=== PATIENT | male | born 1990 | race African-American/Black ===

== ENCOUNTER 2016-06-14 15:46 | Inpatient (IN) | payer OTHER ==
[2016-06-14 16:52] VITALS: BMI 22.7
[2016-06-14] MEDS ORDERED: P-EPHED 60MG/TRIPROLIDI 2.5MG TABLET PO PRN (17:00)
[2016-06-14] MEDS ORDERED: MAGNESIUM CITRATE 300 ML BOTTLE PO PRN (17:00)
[2016-06-14] MEDS ORDERED: MAGNESIUM HYDROX 2400MG/30ML ORAL SUSPENSION 30 ML CUP PO PRN (17:00)
[2016-06-14] MEDS ORDERED: IBUPROFEN 400 MG TABLET (FP) PO PRN (17:00)
[2016-06-14] MEDS ORDERED: MENTHOL/PHENOL 1 EACH UD MM PRN (17:00)
[2016-06-14] MEDS ORDERED: guaiFENesin/D-METHORPHAN HB 10 ML UNIT-DOSE CUPS PO PRN (17:00)
[2016-06-14] MEDS ORDERED: MAG HYDROX/AL HYDROX/SIMETH 30 ML UNIT-DOSE CUP PO PRN (17:00)
[2016-06-14] MEDS ORDERED: LOPERAMIDE HCL 2 MG CAPSULE PO PRN (17:00)
[2016-06-14] MEDS ORDERED: ACETAMINOPHEN 325 MG TABLET (FP) PO PRN (17:00)
[2016-06-14] MEDS ORDERED: hydrOXYzine PAMOATE 50 MG CAPSULE (FP) PO PRN (17:00)
--- NOTE | 2016-06-14 17:00 | HP ---
Admission ROS [facility] - [facility] Chief Complaint: i want to go to rehab Allergies/Adverse Reactions: Allergies Allergy/AdvReac Type Severity Reaction Status Date / Time house dust mite AdvReac Verified 06/14/16 16:56 pollen extracts AdvReac Verified 06/14/16 16:56 History of Present Illness: 25 years old male with long history of pcp, cocaine, marijuana, dependence, came to [facility] first time seeking rehab program, is admitted to rehab Exam Limitations: No Limitations - Ebola screening Have you traveled outside of the country in the last 21 days: No Have you had contact with anyone from an Ebola affected area: No Have you been sick,other than usual withdrawal symptoms: No Do you have a fever: No - Review of Systems Constitutional: Loss of Appetite, Unintentional Wgt. Loss EENT: reports: Hearing Loss (x 1 year) Respiratory: reports: Cough, SOB with Exertion Cardiac: reports: Palpitations GI: reports: Poor Appetite, Poor Fluid Intake : reports: No Symptoms Reported Musculoskeletal: reports: Back Pain Integumentary: reports: Change in Color (left knee - fell - "few days ago") Neuro: reports: No Symptoms reported Endocrine: reports: No Symptoms Reported Hematology: reports: No Symptoms Reported Psychiatric: reports: Judgement Intact, Orientated x3, Depressed Other Systems: Reviewed and Negative Patient History - Patient Medical History Hx Anemia: No Hx Asthma: Yes Hx Chronic Obstructive Pulmonary Disease (COPD): No Hx Cancer: No Hx Cardiac Disorders: No Hx Congestive Heart Failure: No Hx Hypertension: No Hx Hypercholesterolemia: No Hx Pacemaker: No HX Cerebrovascular Accident: No Hx Seizures: No Hx Dementia: No Hx Diabetes: No Hx Gastrointestinal Disorders: No Hx Liver Disease: No Hx Genitourinary Disorders: No Hx Sexually Transmitted Disorders: No Hx Renal Disease (ESRD): No Hx Thyroid Disease: No Hx Human Immunodeficiency Virus (HIV): No Hx Hepatitis C: No Hx Depression: Yes Hx Suicide Attempt: No Hx Bipolar Disorder: No Hx Schizophrenia: Yes - Patient Surgical History Past Surgical History: No - PPD History Previous Implant?: Yes Documented Results: Negative w/o proof Implanted On Prior R Admission?: No PPD to be Administered?: Yes - Smoking Cessation Smoking history: Current every day smoker Have you smoked in the past 12 months: Yes Aproximately how many cigarettes per day: 7 Cigars Per Day: 0 Hx Chewing Tobacco Use: No Initiated information on smoking cessation: Yes 'Breaking Loose' booklet given: 06/14/16 - Substance & Tx. History Hx Alcohol Use: No Hx Substance Use: Yes Substance Use Type: Cocaine, Marijuana Hx Substance Use Treatment: Yes - Substances Abused PCP Route: Smoking Frequency: Daily Amount used: 4 bags Age of first use: 17 Date of Last Use: 06/11/16 Cocaine Route: Oral Frequency: Daily Amount used: 1/2 gram Age of first use: 18 Date of Last Use: 06/11/16 Marijuana/Hashish Route: Smoking Frequency: Daily Amount used: 5 blundt Age of first use: 15 Date of Last Use: 06/13/16 Family Disease History - Family Disease History Family Disease History: Diabetes: Grandparent, Father, Other: Mother (no contact ) Admission Physical Exam [facility] - Vital Signs Vital Signs: Vital Signs - 24 hr 06/14/16 16:50 Temperature 97.2 F L Pulse Rate 122 H Respiratory 18 Rate Blood Pressure 126/77 - Physical General Appearance: Yes: No Apparent Distress, Appropriately Dressed, Thin HEENTM: Yes: Hearing grossly Normal, Normal ENT Inspection, Normocephalic, Normal Voice Respiratory: Yes: Chest Non-Tender, Lungs Clear, Normal Breath Sounds, No Respiratory Distress, No Accessory Muscle Use Neck: Yes: Supple, Trachea in good position Breast: Yes: Breasts Symetrical Cardiology: Yes: Regular Rhythm, S1, S2, Tachycardia Abdominal: Yes: Non Tender, Soft Genitourinary: Yes: Within Normal Limits Back: Yes: Normal Inspection Musculoskeletal: Yes: full range of Motion, Gait Steady, Other (fell few days ago - multiple superficial skin abrasion - left knee + left hip) Extremities: Yes: Normal Range of Motion, Non-Tender Neurological: Yes: Fully Oriented, Alert, Motor Strength 5/5, Normal Response, Depressed Affect Integumentary: Yes: Warm Lymphatic: Yes: Within Normal Limits - Diagnostic (1) Cocaine dependence, uncomplicated Current Visit: Yes Status: Acute (2) Cannabis dependence, uncomplicated Current Visit: Yes Status: Acute (3) PCP dependence Current Visit: Yes Status: Acute (4) Asthma Current Visit: Yes Status: Acute Qualifiers: Asthma severity: mild intermittent Asthma complication type: with status asthmaticus Qualified Code(s): J45.22 - Mild intermittent asthma with status asthmaticus (5) Nicotine dependence Current Visit: Yes Status: Acute Qualifiers: Nicotine product type: cigarettes Substance use status: in withdrawal Qualified Code(s): F17.213 - Nicotine dependence, cigarettes, with withdrawal (6) Skin abrasion Current Visit: Yes Status: Acute (7) Weight loss Current Visit: Yes Status: Acute (8) Schizophrenia Current Visit: Yes Status: Suspected Qualifiers: Schizophrenia type: schizophreniform disorder Qualified Code(s): F20.81 - Schizophreniform disorder Cleared for Admission [facility] - Detox or Rehab [facility] Level of Care: Observation Bed Claeared for Rehab Admission: Yes [facility] Breath Alcohol Content Breath Alcohol Content: 0 Vital Signs - Vital Signs Vital Signs Refused: No Temperature: 97.2 F Temperature Source: Oral Pulse Rate: 122 Respiratory Rate: 18 Blood Pressure: 126/77 BP Location: Right Arm Blood Pressure Position: Sitting - Height Height: 5 ft 7 in - Weight Weight: 145 lb Weight Measurement Method: Standing Scale Body Mass Index (BMI): 22.7 - Bowel Function Bowel Movement: Yes Urine Drug Screen - Control Is Test Valid: Yes - Results Drug Screen Negative: No Urine Drug Screen Results: THC-Marijuana, CHRISTIANA-Cocaine, PCP-Phencyclidine
[2016-06-14] MEDS ORDERED: ALBUTEROL SO4 2.5/IPRATROPIUM 0.5 INH SOL 3 ML VIAL.NEB. NEB PRN (17:20)
[2016-06-14] MEDS ORDERED: ALBUTEROL SO4 6.7 GM HFA INHALER IH PRN (17:20)
[2016-06-14] MEDS ORDERED: BACITRACIN 0.9 GM PACKET TP ONE (18:00)
[2016-06-14] MEDS ORDERED: TUBERCULIN PPD 5 TU/0.1ML VIAL ID ONE (20:00)
[2016-06-14 20:59] LABS: URINE APPEARANCE CLEAR; URINE BILIRUBIN NEGATIVE (NEGATIVE); URINE BLOOD NEGATIVE (NEGATIVE); URINE COLOR YELLOW; URINE GLUCOSE (UA) NEGATIVE (NEGATIVE); URINE KETONE 1+ (NEGATIVE); URINE LEUK ESTERASE NEGATIVE (NEGATIVE); URINE NITRITE NEGATIVE (NEGATIVE); URINE PROTEIN NEGATIVE (NEGATIVE); URINE UROBILINOGEN 2.0 E.U/dl E.U./dl (0.2-1.0)
[2016-06-14] MEDS: THIAMINE HCL 100 MG TABLET (FP) PO SCH (21:25)
[2016-06-14] MEDS: diphenhydrAMINE HCL 50 MG CAPSULE PO PRN (21:25)
[2016-06-14] MEDS: NICOTINE POLACRILEX 2 MG GUM BUC PRN (21:25)
[2016-06-15] MEDS: PRENATAL VITAMINS W/ FOLIC ACID TABLET (FP) PO SCH (09:39)
[2016-06-15] MEDS: NICOTINE 14 MG/24 HOURS TOPICAL PATCH TD SCH (09:39)
[2016-06-15 10:08] LABS: MCH 28.9 pg (25.7-33.7); MCHC 32.7 g/dl (32.0-35.9); MEAN CELL VOLUME 88.3 fl (80-96); MEAN PLT VOLUME 8.7 fl (7.5-11.1); PLATELET COUNT 209 K/MM3 (134-434); RDW 13.8 % (11.9-15.9); WHITE BLOOD COUNT 5.7 K/mm3 (4.0-10.0)
[2016-06-15 10:37] LABS: ALBUMIN 3.5 g/dl (3.4-5.0); ALK PHOS 59 U/L (45-117); ANION GAP 9 (8-16); BILIRUBIN,TOTAL 0.3 mg/dL (0.2-1.0); CALCIUM 8.8 mg/dL (8.5-10.1); CO2 29 mmol/L (21-32); GLUCOSE,RANDOM 102 mg/dL (74-106); SGOT/AST 26 U/L (15-37); SGPT/ALT 39 U/L (12-78); TOT PROT 6.9 g/dl (6.4-8.2)
[2016-06-15 10:44] LABS: HIV 1 & 2 AB NEGATIVE; HIV 1 AGp24 NEGATIVE
[2016-06-15] MEDS ORDERED: PNEUMOCOCCAL 23 VACCINE 0.5 ML VIAL IM ONE (12:00)
[2016-06-15] MEDS ORDERED: PNEUMOC 13-VAL CONJ-DIP CRM/PF 0.5 ML DISP.SYRIN IM ONE (12:00)
[2016-06-15] MEDS ORDERED: INFLUENZA VACCINE 45 MCG/0.5 ML (MDV 16-17) IM ONE (12:00)
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
--- NOTE | 2016-06-15 16:11 | EKG ---
Test Reason : Blood Pressure : / mmHG Vent. Rate : 104 BPM Atrial Rate : 104 BPM P-R Int : 132 ms QRS Dur : 074 ms QT Int : 352 ms P-R-T Axes : 085 087 063 degrees QTc Int : 462 ms SINUS TACHYCARDIA OTHERWISE NORMAL ECG NO PREVIOUS ECGS AVAILABLE Confirmed by CHETAN RÍOS MD ([id number]) on 06/15/2016 4:10:52 PM Referred By: Ricardo Nguyen Confirmed By:CHETAN RÍOS MD
[2016-06-15] MEDS: THIAMINE HCL 100 MG TABLET (FP) PO SCH (21:36)
[2016-06-15] MEDS: NICOTINE POLACRILEX 2 MG GUM BUC PRN (21:38)
[2016-06-16] MEDS: PRENATAL VITAMINS W/ FOLIC ACID TABLET (FP) PO SCH (09:22)
[2016-06-16] MEDS: FLUoxetine HCL 10 MG CAPSULE (FP) PO SCH (09:22)
[2016-06-16] MEDS: ARIPiprazole 10 MG TABLET PO SCH (09:22)
[2016-06-16] MEDS: NICOTINE 14 MG/24 HOURS TOPICAL PATCH TD SCH (09:23)
[2016-06-16] MEDS: NICOTINE POLACRILEX 2 MG GUM BUC PRN (14:16)
[2016-06-16] MEDS: THIAMINE HCL 100 MG TABLET (FP) PO SCH (21:18)
[2016-06-16] MEDS: diphenhydrAMINE HCL 50 MG CAPSULE PO PRN (21:18)
[2016-06-17] MEDS: FLUoxetine HCL 10 MG CAPSULE (FP) PO SCH (09:23)
[2016-06-17] MEDS: PRENATAL VITAMINS W/ FOLIC ACID TABLET (FP) PO SCH (09:23)
[2016-06-17] MEDS: NICOTINE 14 MG/24 HOURS TOPICAL PATCH TD SCH (09:23)
[2016-06-17] MEDS: ARIPiprazole 10 MG TABLET PO SCH (09:23)
[2016-06-17] MEDS: NICOTINE POLACRILEX 2 MG GUM BUC PRN ×2 (12:36→16:54)
[2016-06-17] MEDS: diphenhydrAMINE HCL 50 MG CAPSULE PO PRN (21:17)
[2016-06-17] MEDS: THIAMINE HCL 100 MG TABLET (FP) PO SCH (21:17)
[2016-06-18] MEDS: diphenhydrAMINE HCL 50 MG CAPSULE PO PRN ×2 (00:35→21:31)
[2016-06-18] MEDS: ARIPiprazole 10 MG TABLET PO SCH (09:52)
[2016-06-18] MEDS: PRENATAL VITAMINS W/ FOLIC ACID TABLET (FP) PO SCH (09:52)
[2016-06-18] MEDS: NICOTINE 14 MG/24 HOURS TOPICAL PATCH TD SCH (09:52)
[2016-06-18] MEDS: FLUoxetine HCL 10 MG CAPSULE (FP) PO SCH (09:52)
--- NOTE | 2016-06-18 13:10 | PN ---
Psychiatric Progress Note Vital Signs: Vital Signs Period Temp Pulse Resp BP Sys/Hernandez Pulse Ox Last 24 Hr 98.2 F 107 16-18 104/81 Date of Session: 06/18/16 Chief Complaint:: insomnia HPI: Patient is addressing cocaine, cannabis, PCP dependence comorbid Schizophrenia. ROS: Astma. Current Medications: Active Medications Generic Name Dose Route Start Last Admin Trade Name Freq PRN Reason Stop Dose Admin Acetaminophen 650 mg 06/14/16 17:00 Tylenol - PO Q4H PRN PAIN Al Hydroxide/Mg Hydroxide 30 ml 06/14/16 17:00 06/18/16 08:46 Mylanta Oral Suspension - PO 30 ml Q6H PRN Administration DYSPEPSIA Albuterol Sulfate 2 puff 06/14/16 17:20 Ventolin Hfa Inhaler - IH Q4H PRN SHORT OF BREATH/WHEEZING Albuterol/Ipratropium 1 amp 06/14/16 17:20 Duoneb - NEB Q6H PRN SHORTNESS OF BREATH Aripiprazole 10 mg 06/16/16 10:00 06/18/16 09:52 Abilify PO 10 mg DAILY CHELA Administration Diphenhydramine HCl 50 mg 06/14/16 17:00 06/18/16 00:35 Benadryl - PO 50 mg HSMR1 PRN Administration INSOMNIA Eucalyptus/Menthol/Phenol/Sorbitol 1 each 06/14/16 17:00 Cepastat Lozenge - MM Q4H PRN SORE THROAT Fluoxetine HCl 10 mg 06/16/16 10:00 06/18/16 09:52 Prozac - PO 10 mg DAILY CHELA Administration Guaifenesin 10 ml 06/14/16 17:00 Robitussin Dm - PO Q6H PRN COUGH Hydroxyzine Pamoate 50 mg 06/14/16 17:00 Vistaril - PO Q4H PRN AGITATION Ibuprofen 400 mg 06/14/16 17:00 Motrin - PO Q6H PRN SEVERE PAIN Loperamide HCl 4 mg 06/14/16 17:00 Imodium - PO Q6H PRN DIARRHEA Magnesium Citrate 300 ml 06/14/16 17:00 Citroma - PO Q48H PRN CONSTIPATION Magnesium Hydroxide 30 ml 06/14/16 17:00 Milk Of Magnesia - PO DAILY PRN CONSTIPATION Nicotine 14 mg 06/15/16 10:00 06/18/16 09:52 Nicoderm Patch - TD Not Given DAILY CHELA Nicotine Polacrilex 2 mg 06/14/16 17:19 06/17/16 16:54 Nicorette Gum - BUC 2 mg Q2H PRN Administration NICOTINE REPLACEMENT RX Multivit/Folic Acid/Iron 1 tab 06/15/16 10:00 06/18/16 09:52 Vitamins (Sjr) - PO 1 tab DAILY CHELA Administration Pseudoephedrine/Triprolidine 1 combo 06/14/16 17:00 Actifed - PO TID PRN NASAL CONGESTION Quetiapine Fumarate 25 mg 06/18/16 22:00 Seroquel - PO HS CHELA Thiamine HCl 100 mg 06/14/16 22:00 06/17/16 21:17 Vitamin B1 - PO 100 mg HS CHELA Administration Trazodone HCl 50 mg 06/18/16 22:00 Desyrel - PO HS CHELA Medication(s) Change(s): add Seroquel 25 mg po hs. Current Side Effect: No Lab tests ordered: No Lab tests reviewed: Yes Provider note:: Patient generally adjusted well to the unit, he was seen today due to the c/o insomnia. Reports past good responce to trazodone and seroquel, but feels that seroquel was more effective, will add 25 mg po hs, indications and properties discussed with the patient continue to monitor rpogress. Total face to face time:: 15 Mental Status Exam - Mental Status Exam Alert and Oriented to: Time, Place, Person Cognitive Function: Good Patient Appearance: Well Groomed Mood: Hopeful Affect: Appropriate, Mood Congruent Patient Behavior: Appropriate, Cooperative Speech Pattern: Clear, Appropriate Voice Loudness: Normal Thought Process: Circumstantial, Goal Oriented Thought Disorder: Not Present Hallucinations: Denies Suicidal Ideation: Denies Homicidal Ideation: Denies Insight/Judgement: Fair Sleep: Fair Appetite: Fair Muscle strength/Tone: Normal Gait/Station: Normal Psychiatric Treatment Plan - Problem List (1) Asthma Current Visit: Yes Qualifiers: Asthma severity: mild intermittent Asthma complication type: with status asthmaticus Qualified Code(s): J45.22 - Mild intermittent asthma with status asthmaticus (2) Nicotine dependence Current Visit: Yes Qualifiers: Nicotine product type: cigarettes Substance use status: in withdrawal Qualified Code(s): F17.213 - Nicotine dependence, cigarettes, with withdrawal (3) PCP dependence Current Visit: Yes (4) Schizophrenia Current Visit: Yes Qualifiers: Schizophrenia type: schizophreniform disorder Qualified Code(s): F20.81 - Schizophreniform disorder (5) Cocaine dependence Current Visit: Yes (6) Cannabis dependence Current Visit: Yes
[2016-06-18] MEDS: THIAMINE HCL 100 MG TABLET (FP) PO SCH (21:31)
[2016-06-18] MEDS: traZODone HCL 50 MG TABLET (FP) PO SCH (21:31)
[2016-06-18] MEDS: QUEtiapine FUMARATE 25 MG TABLET (FP) PO SCH (21:31)
[2016-06-19] MEDS: ARIPiprazole 10 MG TABLET PO SCH (10:02)
[2016-06-19] MEDS: PRENATAL VITAMINS W/ FOLIC ACID TABLET (FP) PO SCH (10:02)
[2016-06-19] MEDS: FLUoxetine HCL 10 MG CAPSULE (FP) PO SCH (10:02)
[2016-06-19] MEDS: NICOTINE 14 MG/24 HOURS TOPICAL PATCH TD SCH (10:03)
[2016-06-19] MEDS: QUEtiapine FUMARATE 25 MG TABLET (FP) PO SCH (21:10)
[2016-06-19] MEDS: diphenhydrAMINE HCL 50 MG CAPSULE PO PRN (21:10)
[2016-06-19] MEDS: THIAMINE HCL 100 MG TABLET (FP) PO SCH (21:10)
[2016-06-19] MEDS: traZODone HCL 50 MG TABLET (FP) PO SCH (21:10)
[2016-06-20] MEDS: FLUoxetine HCL 10 MG CAPSULE (FP) PO SCH (09:54)
[2016-06-20] MEDS: PRENATAL VITAMINS W/ FOLIC ACID TABLET (FP) PO SCH (09:54)
[2016-06-20] MEDS: NICOTINE 14 MG/24 HOURS TOPICAL PATCH TD SCH (09:54)
[2016-06-20] MEDS: ARIPiprazole 10 MG TABLET PO SCH (09:54)
[2016-06-20] MEDS: NICOTINE POLACRILEX 2 MG GUM BUC PRN ×2 (09:56→16:59)
[2016-06-20] MEDS: diphenhydrAMINE HCL 50 MG CAPSULE PO PRN (21:42)
[2016-06-20] MEDS: THIAMINE HCL 100 MG TABLET (FP) PO SCH (21:42)
[2016-06-20] MEDS: QUEtiapine FUMARATE 25 MG TABLET (FP) PO SCH (21:42)
[2016-06-20] MEDS: traZODone HCL 50 MG TABLET (FP) PO SCH (21:42)
[2016-06-21 06:45] VITALS: BP 135/71; PULSE 108; TEMP 98.1
[2016-06-21] MEDS: NICOTINE 14 MG/24 HOURS TOPICAL PATCH TD SCH (09:49)
[2016-06-21] MEDS: PRENATAL VITAMINS W/ FOLIC ACID TABLET (FP) PO SCH (09:49)
[2016-06-21] MEDS: ARIPiprazole 10 MG TABLET PO SCH (09:49)
[2016-06-21] MEDS: FLUoxetine HCL 10 MG CAPSULE (FP) PO SCH (09:49)
[2016-06-21] MEDS: NICOTINE POLACRILEX 2 MG GUM BUC PRN (10:35)
--- NOTE | 2016-06-21 20:44 | PN ---
ISHAAN Progress Note Note: received nurse call patient wants to be discharged early, willing to follow up as per counselor arranged recommend inform attending psychiatrist
--- NOTE | 2016-06-22 10:54 | PN ---
S Progress Note Note: patient signed out ama on 06/21/16 please see medical staff notes.
== END 2016-06-21 19:20 | disposition left against medical advice (07) | DRG 770 ==
LOC: YASAS 15:46 → Y5N 17:43
PROVIDERS: ADMIT Psychiatry & Neurology Psychiatry; ATTEND Psychiatry & Neurology Psychiatry
PROC: HZ42ZZZ Group Counseling for Substance Abuse Treatment, Cognitive-Behavioral (ICD-10-PCS; principal; 2016-06-21)
DX: F14.20 Cocaine dependence, uncomplicated (principal); F12.20 Cannabis dependence, uncomplicated; F16.20 Hallucinogen dependence, uncomplicated; F17.210 Nicotine dependence, cigarettes, uncomplicated; F20.81 Schizophreniform disorder; J45.22 Mild intermittent asthma with status asthmaticus; R63.4 Abnormal weight loss; Z68.22 Body mass index [BMI] 22.0-22.9, adult
CPT/HCPCS: 36415; 80053; 81003; 85027; 86593; 86803; 87389; 93005; 93010

== ENCOUNTER 2018-06-02 15:31 | Inpatient (IN) | payer OTHER ==
--- NOTE | 2018-06-02 19:39 | HP ---
COWS - Scale Resting Pulse: 2= ME 101-120 Sweatin= No chills or Flushing Restless Observation: 1= Difficult to Sit Still Bone or Joint Aches: 0= None Runny Nose/ Eye Tearin= None GI Upset > 30mins: 2= Nausea/Diarrhea Tremor Observation: 0= None Yawning Observation: 0= None CIWA Score - Admission Criteria OAS Guidelines: Admission for Medically Managed Detox: Requires at least one of the followin. CIWA greater than 12 2. Seizures within the past 24 hours 3. Delirium tremens within the past 24 hours 4. Hallucinations within the past 24 hours 5. Acute intervention needed for co occurring medical disorder 6. Acute intervention needed for co occurring psychiatric disorder 7. Severe withdrawal that cannot be handled at a lower level of care (continued vomiting, continued diarrhea, abnormal vital signs) requiring intravenous medication and/or fluids 8. Admission ROS S - HPI Chief Complaint: here for detox cocaine and heroin. Heroin: using 3 bundles/day, sniffing Cocaine- $200/day, sniffing Allergies/Adverse Reactions: Allergies Allergy/AdvReac Type Severity Reaction Status Date / Time No Known Allergies Allergy Verified 06/02/18 20:02 - Ebola screening Have you traveled outside of the country in the last 21 days: No Have you had contact with anyone from an Ebola affected area: No Patient History - Patient Medical History Hx Anemia: No Hx Asthma: Yes (Not on medication) Hx Chronic Obstructive Pulmonary Disease (COPD): No Hx Cancer: No Hx Cardiac Disorders: No Hx Congestive Heart Failure: No Hx Hypertension: No Hx Hypercholesterolemia: No Hx Pacemaker: No HX Cerebrovascular Accident: No Hx Seizures: No Hx Dementia: No Hx Diabetes: No Hx Gastrointestinal Disorders: No Hx Liver Disease: No Hx Genitourinary Disorders: No Hx Sexually Transmitted Disorders: No Hx Renal Disease (ESRD): No Hx Thyroid Disease: No Hx Human Immunodeficiency Virus (HIV): No Hx Hepatitis C: No Hx Depression: Yes (Not on medication) Hx Suicide Attempt: No Hx Bipolar Disorder: Yes (Not on medication) Hx Schizophrenia: No - Patient Surgical History Past Surgical History: No Hx Neurologic Surgery: No Hx Cataract Extraction: No Hx Cardiac Surgery: No Hx Lung Surgery: No Hx Breast Surgery: No Hx Breast Biopsy: No Hx Abdominal Surgery: No Hx Appendectomy: No Hx Cholecystectomy: No Hx Genitourinary Surgery: No Hx Section: No Hx Orthopedic Surgery: No Anesthesia Reaction: No - PPD History Date: 06/17/16 - Smoking Cessation Smoking history: Current every day smoker Have you smoked in the past 12 months: Yes Aproximately how many cigarettes per day: 7 Cigars Per Day: 0 Hx Chewing Tobacco Use: No Initiated information on smoking cessation: Yes 'Breaking Loose' booklet given: 06/02/18 - Substances Abused Heroin Route: Inhalation Frequency: Daily Amount used: 20 BAGS Age of first use: 25 Date of Last Use: 06/02/18 Cocaine Route: Inhalation Frequency: Daily Amount used: 2gm Age of first use: 18 Date of Last Use: 06/01/18 Marijuana/Hashish Route: Smoking Frequency: Daily Amount used: 3bags Age of first use: 15 Date of Last Use: 06/02/18 Family Disease History - Family Disease History Family Disease History: Diabetes: Grandparent, Father, Other: Mother (no contact ) [facility] Breath Alcohol Content Breath Alcohol Content: 0
--- NOTE | 2018-06-02 20:20 | HP ---
"COWS - Scale Resting Pulse: 2= [place] 101-120 Sweatin=Flushed/Facial Moisture Restless Observation: 1= Difficult to Sit Still Pupil Size: 0= Normal to Room Light (Pupils = 2 mm) Bone or Joint Aches: 0= None Runny Nose/ Eye Tearin= Nasal Congestion GI Upset > 30mins: 2= Nausea/Diarrhea Tremor Observation: 2= Slight Tremor Visible Yawning Observation: 0= None Anxiety or Irritability: 4=Extreme Anxiety Goose Flesh Skin: 0=Smooth Skin COWS Score: 14 CIWA Score - Admission Criteria OASAS Guidelines: Admission for Medically Managed Detox: Requires at least one of the followin. CIWA greater than 12 2. Seizures within the past 24 hours 3. Delirium tremens within the past 24 hours 4. Hallucinations within the past 24 hours 5. Acute intervention needed for co occurring medical disorder 6. Acute intervention needed for co occurring psychiatric disorder 7. Severe withdrawal that cannot be handled at a lower level of care (continued vomiting, continued diarrhea, abnormal vital signs) requiring intravenous medication and/or fluids 8. Admission ROS [facility] Chief Complaint: I'm in heroin withdrawal. Allergies/Adverse Reactions: Allergies Allergy/AdvReac Type Severity Reaction Status Date / Time No Known Allergies Allergy Verified 06/02/18 20:02 History of Present Illness: Was uncooperative and speaking to staff inappropriately earlier. After discussion with patient about behavioral issues, patient agrees to controlling outbursts. Patient verbalizes an understanding that inappropriate language may result in discharge. States I really want to stop using drugs. I need help. Hx heroin, marijuana, and cocaine use disorder. Heroin use began at age 25. (nasal) Cocaine use began at age 18. Marijuana use began at age 15. Nicotine use began at age 18. Denies hx seizures/blackouts/overdoses. States may be interested in starting on Suboxone, once stabilized in rehab. Asthma as a child. denies other significant PMH/PSH MH: Denies thoughts of harming self or others. States not currently seeing a mental health provider. Past hx depression and bipolar disorder. Search Terms: Richard Boykin, 1990 Search Date: 06/02/2018 08:10:48 PM The Drug Utilization Report below displays all of the controlled substance prescriptions, if any, that your patient has filled in the last twelve months. The information displayed on this report is compiled from pharmacy submissions to the Department, and accurately reflects the information as submitted by the pharmacies. This report was requested by: Risa Pablo | Reference #: [id number] Others' Prescriptions Patient Name: Richard Boykin Date: 1990 Address: [address] [place] [address] Sex: Male Rx Written Rx Dispensed Drug Quantity Days Supply Prescriber Name 10/23/2017 10/24/2017 chlordiazepoxide 25 mg capsule 26 5 Kelly Abel Exam Limitations: No Limitations - Ebola screening Have you traveled outside of the country in the last 21 days: No Have you had contact with anyone from an Ebola affected area: No Have you been sick,other than usual withdrawal symptoms: No Do you have a fever: No - Review of Systems Constitutional: Chills, Diaphoresis, Changes in sleep (Difficulty falling asleep ) EENT: reports: Blurred Vision, Tearing, Nose Congestion, Dental Problems (Occ tooth pain.) Respiratory: reports: No Symptoms reported Cardiac: reports: Irregular Heart Rate GI: reports: Diarrhea, Nausea, Vomiting : reports: No Symptoms Reported Musculoskeletal: reports: No Symptoms Reported Integumentary: reports: Lesions (Pain at cuts on heels from rubbing inside of shoes) Neuro: reports: Tremors Endocrine: reports: Increased Thirst Hematology: reports: No Symptoms Reported Psychiatric: reports: Judgement Intact, Orientated x3, Agitated, Anxious Patient History - Patient Medical History Hx Anemia: No Hx Asthma: Yes (Not on medication) Hx Chronic Obstructive Pulmonary Disease (COPD): No Hx Cancer: No Hx Cardiac Disorders: No Hx Congestive Heart Failure: No Hx Hypertension: No Hx Hypercholesterolemia: No Hx Pacemaker: No HX Cerebrovascular Accident: No Hx Seizures: No Hx Dementia: No Hx Diabetes: No Hx Gastrointestinal Disorders: No Hx Liver Disease: No Hx Genitourinary Disorders: No Hx Sexually Transmitted Disorders: No Hx Renal Disease (ESRD): No Hx Thyroid Disease: No Hx Human Immunodeficiency Virus (HIV): No Hx Hepatitis C: No Hx Depression: Yes (Not on medication) Hx Suicide Attempt: No Hx Bipolar Disorder: Yes (Not on medication) Hx Schizophrenia: No - Patient Surgical History Past Surgical History: No Hx Neurologic Surgery: No Hx Cataract Extraction: No Hx Cardiac Surgery: No Hx Lung Surgery: No Hx Breast Surgery: No Hx Breast Biopsy: No Hx Abdominal Surgery: No Hx Appendectomy: No Hx Cholecystectomy: No Hx Genitourinary Surgery: No Hx Section: No Hx Orthopedic Surgery: No Anesthesia Reaction: No - PPD History Previous Implant?: Yes Documented Results: Negative w/o proof Implanted On Prior [facility] Admission?: Yes Date: 06/17/16 PPD to be Administered?: Yes - Smoking Cessation Smoking history: Current every day smoker Have you smoked in the past 12 months: Yes Aproximately how many cigarettes per day: 7 Cigars Per Day: 0 Hx Chewing Tobacco Use: No Initiated information on smoking cessation: Yes 'Breaking Loose' booklet given: 06/02/18 - Substance & Tx. History Hx Alcohol Use: Yes Hx Substance Use: Yes Substance Use Type: Cocaine, Heroin, Marijuana Hx Substance Use Treatment: Yes (detox, rehab) - Substances Abused Heroin Route: Inhalation Frequency: Daily Amount used: 20 BAGS Age of first use: 25 Date of Last Use: 06/02/18 Cocaine Route: Inhalation Frequency: Daily Amount used: 2gm Age of first use: 18 Date of Last Use: 06/01/18 Marijuana/Hashish Route: Smoking Frequency: Daily Amount used: 3bags Age of first use: 15 Date of Last Use: 06/02/18 Family Disease History - Family Disease History Family Disease History: Diabetes: Grandparent, Father, Other: Mother (no contact ) Admission Physical Exam [facility] - Physical General Appearance: Yes: Mild Distress, Tremorous, Irritable, Sweating, Anxious HEENTM: Yes: EOMI, Hearing grossly Normal, Normocephalic, SUDHIR (Pupils = 2 mm), Pharynx Normal Respiratory: Yes: Chest Non-Tender, Lungs Clear, Normal Breath Sounds Neck: Yes: No masses,lesions,Nodules, Supple Breast: Yes: Breast Exam Deferred Cardiology: Yes: Regular Rhythm, S1, S2, Tachycardia Abdominal: Yes: Non Tender, Soft, Increased Bowel Sounds Genitourinary: Yes: Within Normal Limits Back: Yes: Normal Inspection Musculoskeletal: Yes: full range of Motion, Gait Steady Extremities: Yes: Normal Capillary Refill (No edema.), Normal Range of Motion, Tremors (of hands when arms elevated) Neurological: Yes: health sciences dean II-XII NML intact, Fully Oriented, Motor Strength 5/5 Integumentary: Yes: Normal Color, Dry, Warm, Diaphoresis, Other (Deep dry cracks on thickened skin of heels (no discharge). Dry cracked skin on feet throughout.) Lymphatic: Yes: Within Normal Limits - Diagnostic (1) Opioid dependence with withdrawal Current Visit: Yes Status: Acute (2) Cannabis dependence, uncomplicated Current Visit: Yes Status: Chronic (3) Cocaine dependence, uncomplicated Current Visit: Yes Status: Chronic (4) Nicotine dependence Current Visit: Yes Status: Chronic Qualifiers: Nicotine product type: cigarettes Substance use status: uncomplicated Qualified Code(s): F17.210 - Nicotine dependence, cigarettes, uncomplicated (5) Skin abrasion Current Visit: Yes Status: Chronic (6) Tachycardia Current Visit: Yes Status: Chronic Cleared for Admission S - Detox or Rehab [facility] Level of Care: Medically Managed Detox Regimen/Protocol: Methadone S Breath Alcohol Content Breath Alcohol Content: 0"
[2018-06-02 20:21] VITALS: BMI 25.0
[2018-06-02] MEDS ORDERED: MAGNESIUM HYDROX 2400MG/30ML ORAL SUSPENSION 30 ML CUP PO PRN (20:50)
[2018-06-02] MEDS ORDERED: LOPERAMIDE HCL 2 MG CAPSULE PO PRN (20:50)
[2018-06-02] MEDS ORDERED: MAGNESIUM CITRATE 300 ML BOTTLE PO PRN (20:50)
[2018-06-02] MEDS ORDERED: ACETAMINOPHEN 325 MG TABLET (FP) PO PRN (20:50)
[2018-06-02] MEDS ORDERED: MENTHOL/PHENOL 1 EACH UD MM PRN (20:50)
[2018-06-02] MEDS ORDERED: IBUPROFEN 400 MG TABLET (FP) PO PRN (20:50)
[2018-06-02] MEDS ORDERED: NICOTINE POLACRILEX 2 MG GUM BC PRN (20:50)
[2018-06-02] MEDS ORDERED: MAG HYDROX/AL HYDROX/SIMETH 30 ML UNIT-DOSE CUP PO PRN (20:50)
[2018-06-02] MEDS ORDERED: P-EPHED 60MG/TRIPROLIDI 2.5MG TABLET PO PRN (20:50)
[2018-06-02] MEDS ORDERED: guaiFENesin 200 MG/10 ML 10 ML UNIT-DOSE CUPS PO PRN (20:52)
[2018-06-02] MEDS ORDERED: MINERAL OIL/PETROLAT/WATER TOPICAL CREAM 454 GM JAR TP PRN (20:53)
[2018-06-02] MEDS: THIAMINE HCL 100 MG TABLET (FP) PO SCH (21:40)
[2018-06-02] MEDS ORDERED: MELATONIN 5 MG TABLETS PO PRN (22:00)
[2018-06-02] MEDS ORDERED: METHADONE HCL 10 MG TABLET (FOR DETOX USE ONLY) PO ONE ×2 (22:50→23:00)
[2018-06-03] MEDS ORDERED: METHADONE HCL 10 MG TABLET (FOR DETOX USE ONLY) PO ONE (10:00)
[2018-06-03] MEDS: PRENATAL VITAMINS W/ FOLIC ACID TABLET (FP) PO SCH (10:27)
[2018-06-03] MEDS: NICOTINE 14 MG/24 HOURS TOPICAL PATCH TD SCH (10:28)
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
[2018-06-03 11:43] LABS: HEMATOCRIT 38.6 % (35.4-49); HEMOGLOBIN 12.3 GM/dL (11.7-16.9); MCH 27.2 pg (25.7-33.7); MCHC 31.8 g/dl (32.0-35.9); MEAN CELL VOLUME 85.4 fl (80-96); MEAN PLT VOLUME 9.9 fl (7.5-11.1); PLATELET COUNT 230 K/MM3 (134-434); RBC 4.52 M/mm3 (4.00-5.60); RDW 14.6 % (11.9-15.9); WHITE BLOOD COUNT 5.4 K/mm3 (4.0-10.0)
[2018-06-03 11:51] LABS: ALK PHOS 61 U/L (45-117); ANION GAP 5 MMOL/L (8-16); BILIRUBIN,TOTAL 0.3 mg/dL (0.2-1); BLOOD UREA NITROGEN 12 mg/dL (7-18); CALCIUM 8.5 mg/dL (8.5-10.1); CHLORIDE 104 mmol/L (98-107); CO2 31 mmol/L (21-32); CREATININE 0.9 mg/dL (0.55-1.3); GLUCOSE,RANDOM 91 mg/dL (74-106); POTASSIUM 4.5 mmol/L (3.5-5.1); SGOT/AST 25 U/L (15-37); SGPT/ALT 25 U/L (13-61); SODIUM 140 mmol/L (136-145); TOT PROT 6.1 g/dl (6.4-8.2)
--- NOTE | 2018-06-03 15:54 | PN ---
BHS COWS - Scale Resting Pulse: 1= [place] 81-100 Sweatin= Chills/Flushing Restless Observation: 0= Sits Still Pupil Size: 0= Normal to Room Light Bone or Joint Aches: 0= None Runny Nose/ Eye Tearin= Nasal Congestion GI Upset > 30mins: 0= None Tremor Observation of Outstretched Hands: 2= Slight Tremor Visible Yawning Observation: 1= 1-2x During Session Anxiety or Irritability: 2=Irritable/Anxious Goose Flesh Skin: 3=Piloerection COWS Score: 11 BHS Progress Note (SOAP) Subjective: Fatigue, Sweating, Tremors. Objective: PATIENT DECLINED TO ANSWER QUESTIONS PERTAINING TO ORIENTATION TO PERSON, PLACE AND TIME. 06/03/18 15:54 Vital Signs Temperature 96.9 F L 06/03/18 13:12 Pulse Rate 87 06/03/18 13:12 Respiratory Rate 18 06/03/18 13:12 Blood Pressure 109/68 06/03/18 13:12 O2 Sat by Pulse Oximetry (%) Laboratory Tests 06/03/18 06/03/18 06/03/18 07:00 07:00 07:00 WBC 5.4 RBC 4.52 Hgb 12.3 Hct 38.6 MCV 85.4 MCH 27.2 MCHC 31.8 L RDW 14.6 Plt Count 230 MPV 9.9 D Sodium 140 Potassium 4.5 Chloride 104 Carbon Dioxide 31 Anion Gap 5 L BUN 12 Creatinine 0.9 Creat Clearance w eGFR > 60 Random Glucose 91 Calcium 8.5 Total Bilirubin 0.3 AST 25 ALT 25 Alkaline Phosphatase 61 Total Protein 6.1 L Albumin 3.0 L RPR Titer Nonreactive LABS NOTED. Assessment: 06/03/18 15:55 WITHDRAWAL SYMPTOMS. Plan: CONTINUE DETOX. ENCOURAGE AMBULATION.
--- NOTE | 2018-06-03 18:19 | EKG ---
Test Reason : Blood Pressure : / mmHG Vent. Rate : 093 BPM Atrial Rate : 093 BPM P-R Int : 152 ms QRS Dur : 070 ms QT Int : 360 ms P-R-T Axes : 074 059 053 degrees QTc Int : 447 ms NORMAL SINUS RHYTHM NORMAL ECG WHEN COMPARED WITH ECG OF 14-JUN-2016 20:33, NO SIGNIFICANT CHANGE WAS FOUND Confirmed by MD RAVI, PAYTON ([id number]) on 06/03/2018 6:18:41 PM Referred By: Confirmed By:PAYTON RODRIGUES MD
[2018-06-03] MEDS: THIAMINE HCL 100 MG TABLET (FP) PO SCH (21:30)
[2018-06-03] MEDS: diazePAM 5 MG TABLET PO PRN (21:30)
[2018-06-04] MEDS ORDERED: METHADONE HCL 5 MG TABLET (FOR DETOX USE ONLY) PO ONE (10:00)
[2018-06-04] MEDS: diazePAM 5 MG TABLET PO PRN (10:15)
[2018-06-04] MEDS: NICOTINE 14 MG/24 HOURS TOPICAL PATCH TD SCH (10:16)
[2018-06-04] MEDS: PRENATAL VITAMINS W/ FOLIC ACID TABLET (FP) PO SCH (10:16)
[2018-06-04 13:48] VITALS: BP 133/77; PULSE 114; TEMP 97.4
--- NOTE | 2018-06-04 14:57 | DS ---
[facility] Detox Discharge Summary Admission Date: 06/02/18 Discharge Date: 06/04/18 - History Present History: Opioid Dependence Additional Comments: 27 years old male admitted on 06/02/18 for opiate withdrawal stabilization insists to leave the detox unit without apparent reason patient is alert no acute distress no suicidal no homocidal ideation aftercare revelation - Physical Exam Results Vital Signs: Vital Signs Temperature 97.4 F L 06/04/18 13:47 Pulse Rate 114 H 06/04/18 13:47 Respiratory Rate 20 06/04/18 13:47 Blood Pressure 133/77 06/04/18 13:47 O2 Sat by Pulse Oximetry (%) Pertinent Admission Physical Exam Findings: opiate withdrawal sx Laboratory Last Values WBC 5.4 K/mm3 (4.0-10.0) 06/03/18 07:00 RBC 4.52 M/mm3 (4.00-5.60) 06/03/18 07:00 Hgb 12.3 GM/dL (11.7-16.9) 06/03/18 07:00 Hct 38.6 % (35.4-49) 06/03/18 07:00 MCV 85.4 fl (80-96) 06/03/18 07:00 MCH 27.2 pg (25.7-33.7) 06/03/18 07:00 MCHC 31.8 g/dl (32.0-35.9) L 06/03/18 07:00 RDW 14.6 % (11.9-15.9) 06/03/18 07:00 Plt Count 230 K/MM3 (134-434) 06/03/18 07:00 MPV 9.9 fl (7.5-11.1) D 06/03/18 07:00 Sodium 140 mmol/L (136-145) 06/03/18 07:00 Potassium 4.5 mmol/L (3.5-5.1) 06/03/18 07:00 Chloride 104 mmol/L (98-107) 06/03/18 07:00 Carbon Dioxide 31 mmol/L (21-32) 06/03/18 07:00 Anion Gap 5 MMOL/L (8-16) L 06/03/18 07:00 BUN 12 mg/dL (7-18) 06/03/18 07:00 Creatinine 0.9 mg/dL (0.55-1.3) 06/03/18 07:00 Creat Clearance w eGFR > 60 (>60) 06/03/18 07:00 Random Glucose 91 mg/dL (74-106) 06/03/18 07:00 Calcium 8.5 mg/dL (8.5-10.1) 06/03/18 07:00 Total Bilirubin 0.3 mg/dL (0.2-1) 06/03/18 07:00 AST 25 U/L (15-37) 06/03/18 07:00 ALT 25 U/L (13-61) 06/03/18 07:00 Alkaline Phosphatase 61 U/L (45-117) 06/03/18 07:00 Total Protein 6.1 g/dl (6.4-8.2) L 06/03/18 07:00 Albumin 3.0 g/dl (3.4-5.0) L 06/03/18 07:00 RPR Titer Nonreactive (NONREACTIVE) 06/03/18 07:00 lab noted - Treatment Hospital Course: Detox Protocol Followed, Responded well Patient has Accepted a Rehab Referral to: [facility] - Medication Discharge Medications: Ambulatory Orders Aripiprazole [Abilify] 10 mg PO DAILY 06/14/16 - Diagnosis (1) Asthma Status: Chronic Qualifiers: Asthma severity: mild Asthma persistence: intermittent Asthma complication type: with status asthmaticus Qualified Code(s): J45.22 - Mild intermittent asthma with status asthmaticus (2) Nicotine dependence Status: Acute Qualifiers: Nicotine product type: cigarettes Substance use status: in withdrawal Qualified Code(s): F17.213 - Nicotine dependence, cigarettes, with withdrawal (3) Opioid dependence with withdrawal Status: Acute (4) Weight loss Status: Acute - AMA Did Patient Leave Against Medical Advice: Yes
[2018-06-05] MEDS ORDERED: METHADONE HCL 5 MG TABLET (FOR DETOX USE ONLY) PO ONE (10:00)
[2018-06-06] MEDS ORDERED: METHADONE HCL 10 MG TABLET (FOR DETOX USE ONLY) PO ONE (10:00)
[2018-06-07] MEDS ORDERED: METHADONE HCL 5 MG TABLET (FOR DETOX USE ONLY) PO ONE (06:00)
== END 2018-06-04 15:31 | disposition left against medical advice (07) | DRG 770 ==
LOC: YASAS 15:31 → Y3N 20:40
PROVIDERS: ADMIT Neuromusculoskeletal Medicine & OMM; ATTEND Neuromusculoskeletal Medicine & OMM
PROC: HZ2ZZZZ Detoxification Services for Substance Abuse Treatment (ICD-10-PCS; principal; 2018-06-02)
DX: F11.23 Opioid dependence with withdrawal (principal); F14.20 Cocaine dependence, uncomplicated; F12.20 Cannabis dependence, uncomplicated; F17.213 Nicotine dependence, cigarettes, with withdrawal; F19.282 Other psychoactive substance dependence with psychoactive substance-induced sleep disorder; F25.9 Schizoaffective disorder, unspecified; F90.9 Attention-deficit hyperactivity disorder, unspecified type; J45.22 Mild intermittent asthma with status asthmaticus; R00.0 Tachycardia, unspecified; R63.4 Abnormal weight loss; Z68.25 Body mass index [BMI] 25.0-25.9, adult; Z86.59 Personal history of other mental and behavioral disorders
CPT/HCPCS: 36415; 80053; 85027; 86593; 93005; 93010

== ENCOUNTER 2018-07-22 16:15 | Inpatient (IN) | payer OTHER ==
[2018-07-22 18:58] VITALS: BMI 22.0
--- NOTE | 2018-07-22 19:10 | HP ---
COWS - Scale Resting Pulse: 4= [place] > 121 Sweatin= Chills/Flushing Restless Observation: 5= Unable to Sit Still Pupil Size: 1= Pupils >than Normal Bone or Joint Aches: 4=Acute Joint/Muscle Pain Runny Nose/ Eye Tearin= Runny Nose/Eyes GI Upset > 30mins: 2= Nausea/Diarrhea Tremor Observation: 1= Tremor [place], Not Seen Yawning Observation: 0= None Anxiety or Irritability: 4=Extreme Anxiety Goose Flesh Skin: 0=Smooth Skin COWS Score: 24 CIWA Score - Admission Criteria OASAS Guidelines: Admission for Medically Managed Detox: Requires at least one of the followin. CIWA greater than 12 2. Seizures within the past 24 hours 3. Delirium tremens within the past 24 hours 4. Hallucinations within the past 24 hours 5. Acute intervention needed for co occurring medical disorder 6. Acute intervention needed for co occurring psychiatric disorder 7. Severe withdrawal that cannot be handled at a lower level of care (continued vomiting, continued diarrhea, abnormal vital signs) requiring intravenous medication and/or fluids 8. Admission [facility] Allergies/Adverse Reactions: Allergies Allergy/AdvReac Type Severity Reaction Status Date / Time No Known Allergies Allergy Verified 07/22/18 19:57 History of Present Illness: pt here requesting detox from opiate use , reports first age of use 15 , current daily use 1 bundle via inhalation , latest use yesterday 1 pm, current symptoms as above , denies OD , prior detox x 1 at this facility . Poor historian due to current symptoms, restless , agitated. cocaine : 1 oz /day denies IVDU cannabis - denies methadone - denies , latest used yesterday " 5 pills " tobacco : 1 ppd PMHX : asthma PShx :denies Exam Limitations: Clinical Condition - Ebola screening Have you traveled outside of the country in the last 21 days: No Have you had contact with anyone from an Ebola affected area: No Have you been sick,other than usual withdrawal symptoms: No Do you have a fever: No - Review of Systems Constitutional: See HPI EENT: reports: No Symptoms Reported Respiratory: reports: No Symptoms reported Cardiac: reports: No Symptoms Reported GI: reports: See HPI : reports: No Symptoms Reported Musculoskeletal: reports: Muscle Pain Integumentary: reports: No Symptoms Reported Neuro: reports: No Symptoms reported Endocrine: reports: Other (reports borderline DM) Psychiatric: reports: Orientated x3, Agitated, Anxious Patient History - Patient Medical History Hx Anemia: No Hx Asthma: Yes (Not on medication) Hx Chronic Obstructive Pulmonary Disease (COPD): No Hx Cancer: No Hx Cardiac Disorders: No Hx Congestive Heart Failure: No Hx Hypertension: No Hx Hypercholesterolemia: No Hx Pacemaker: No HX Cerebrovascular Accident: No Hx Seizures: No Hx Dementia: No Hx Diabetes: No Hx Gastrointestinal Disorders: No Hx Liver Disease: No Hx Genitourinary Disorders: No Hx Sexually Transmitted Disorders: No Hx Renal Disease (ESRD): No Hx Thyroid Disease: No Hx Human Immunodeficiency Virus (HIV): No Hx Hepatitis C: No Hx Depression: Yes (Not on medication) Hx Suicide Attempt: No Hx Bipolar Disorder: Yes (Not on medication) Hx Schizophrenia: No - Patient Surgical History Past Surgical History: No Hx Neurologic Surgery: No Hx Cataract Extraction: No Hx Cardiac Surgery: No Hx Lung Surgery: No Hx Breast Surgery: No Hx Breast Biopsy: No Hx Abdominal Surgery: No Hx Appendectomy: No Hx Cholecystectomy: No Hx Genitourinary Surgery: No Hx Section: No Hx Orthopedic Surgery: No Anesthesia Reaction: No - PPD History Date: 06/17/16 - Smoking Cessation Smoking history: Current every day smoker Have you smoked in the past 12 months: Yes Aproximately how many cigarettes per day: 7 Cigars Per Day: 0 Hx Chewing Tobacco Use: No Initiated information on smoking cessation: No Family Disease History - Family Disease History Family Disease History: Diabetes: Grandparent, Father, Other: Mother (no contact ) Admission Physical Exam S - Vital Signs Vital Signs: Vital Signs - 24 hr 07/22/18 18:55 Temperature 97.1 F L Pulse Rate 125 H Respiratory 18 Rate Blood Pressure 111/59 L - Physical General Appearance: Yes: Severe Distress, Irritable, Anxious HEENTM: Yes: EOMI, Hearing grossly Normal, Normocephalic, Normal Voice Respiratory: Yes: Chest Non-Tender, Lungs Clear, Normal Breath Sounds Neck: Yes: No masses,lesions,Nodules, Trachea in good position Cardiology: Yes: Regular Rhythm, Regular Rate, S1, S2, Tachycardia Abdominal: Yes: Normal Bowel Sounds, Non Tender, Soft Back: Yes: Normal Inspection Musculoskeletal: Yes: full range of Motion, Gait Steady Extremities: Yes: Normal Capillary Refill, Normal Range of Motion, Non-Tender Neurological: Yes: Motor Strength 5/5 - Diagnostic (1) Cocaine dependence Current Visit: No Status: Acute Qualifiers: Substance use status: uncomplicated Qualified Code(s): F14.20 - Cocaine dependence, uncomplicated (2) Nicotine dependence Current Visit: No Status: Acute Qualifiers: (3) Opioid dependence with withdrawal Current Visit: Yes Status: Acute (4) Asthma Current Visit: No Status: Chronic Qualifiers: Asthma severity: unspecified severity BHS Breath Alcohol Content Breath Alcohol Content: 0 Urine Drug Screen - Results Drug Screen Negative: No Urine Drug Screen Results: THC-Marijuana, CHRISTIANA-Cocaine, OPI-Opiates, MTD- Methadone Inpatient Rehab Admission - Rehab Decision to Admit Inpatient rehab admission?: No
[2018-07-22] MEDS ORDERED: LOPERAMIDE HCL 2 MG CAPSULE PO PRN (19:12)
[2018-07-22] MEDS ORDERED: MAGNESIUM CITRATE 300 ML BOTTLE PO PRN (19:12)
[2018-07-22] MEDS ORDERED: METHADONE HCL 10 MG TABLET (FOR DETOX USE ONLY) PO ONE ×2 (19:12→23:00)
[2018-07-22] MEDS ORDERED: MENTHOL/PHENOL 1 EACH UD MM PRN (19:12)
[2018-07-22] MEDS ORDERED: hydrOXYzine PAMOATE 25 MG CAPSULE (FP) PO PRN (19:12)
[2018-07-22] MEDS ORDERED: IBUPROFEN 400 MG TABLET (FP) PO PRN (19:12)
[2018-07-22] MEDS ORDERED: P-EPHED 60MG/TRIPROLIDI 2.5MG TABLET PO PRN (19:12)
[2018-07-22] MEDS ORDERED: NICOTINE POLACRILEX 2 MG GUM BC PRN (19:12)
[2018-07-22] MEDS ORDERED: ACETAMINOPHEN 325 MG TABLET (FP) PO PRN (19:12)
[2018-07-22] MEDS ORDERED: MAG HYDROX/AL HYDROX/SIMETH 30 ML UNIT-DOSE CUP PO PRN (19:12)
[2018-07-22] MEDS ORDERED: MAGNESIUM HYDROX 2400MG/30ML ORAL SUSPENSION 30 ML CUP PO PRN (19:12)
[2018-07-22] MEDS ORDERED: guaiFENesin/D-METHORPHAN HB 10 ML UNIT-DOSE CUPS PO PRN (19:12)
[2018-07-22] MEDS: THIAMINE HCL 100 MG TABLET (FP) PO SCH (22:53)
[2018-07-23] MEDS ORDERED: METHADONE HCL 10 MG TABLET (FOR DETOX USE ONLY) PO ONE (10:00)
[2018-07-23] MEDS: PRENATAL VITAMINS W/ FOLIC ACID TABLET (FP) PO SCH (10:28)
[2018-07-23 10:30] LABS: HEMATOCRIT 41.5 % (35.4-49); MCH 29.1 pg (25.7-33.7); MCHC 33.7 g/dl (32.0-35.9); MEAN CELL VOLUME 86.3 fl (80-96); MEAN PLT VOLUME 8.5 fl (7.5-11.1); PLATELET COUNT 291 K/MM3 (134-434); RBC 4.81 M/mm3 (4.00-5.60); RDW 15.6 % (11.9-15.9); WHITE BLOOD COUNT 6.8 K/mm3 (4.0-10.0)
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
--- NOTE | 2018-07-23 10:53 | PN ---
[facility] COWS - Scale Resting Pulse: 2= [place] 101-120 Sweatin=Flushed/Facial Moisture Restless Observation: 0= Sits Still Pupil Size: 0= Normal to Room Light Bone or Joint Aches: 2= Severe Diffuse Aches Runny Nose/ Eye Tearin= Nasal Congestion GI Upset > 30mins: 0= None Tremor Observation of Outstretched Hands: 2= Slight Tremor Visible Yawning Observation: 2= >3x During Session Anxiety or Irritability: 1=Feels Anxious/Irritable Goose Flesh Skin: 0=Smooth Skin COWS Score: 12 [facility] Progress Note (SOAP) Subjective: body aches sweats shakes interrupted sleep Objective: 07/23/18 10:52 Vital Signs Temperature 97.9 F 07/23/18 09:22 Pulse Rate 110 H 07/23/18 09:22 Respiratory Rate 18 07/23/18 09:22 Blood Pressure 127/80 07/23/18 09:22 O2 Sat by Pulse Oximetry (%) Laboratory Tests 07/23/18 07:00 WBC 6.8 RBC 4.81 Hgb 14.0 Hct 41.5 MCV 86.3 MCH 29.1 MCHC 33.7 RDW 15.6 Plt Count 291 D MPV 8.5 D labs pending aaox3 ambulating no acute distress Assessment: 07/23/18 10:53 withdrawal sx Plan: continue detox increase fluids labs pending
[2018-07-23 11:35] LABS: ALBUMIN 3.3 g/dl (3.4-5.0); ALK PHOS 76 U/L (45-117); ANION GAP 5 MMOL/L (8-16); BILIRUBIN,TOTAL 0.3 mg/dL (0.2-1); BLOOD UREA NITROGEN 15 mg/dL (7-18); CALCIUM 9.4 mg/dL (8.5-10.1); CHLORIDE 104 mmol/L (98-107); CO2 31 mmol/L (21-32); CREATININE 0.9 mg/dL (0.55-1.3); GLUCOSE,RANDOM 105 mg/dL (74-106); POTASSIUM 4.2 mmol/L (3.5-5.1); SGOT/AST 18 U/L (15-37); SGPT/ALT 34 U/L (13-61); SODIUM 140 mmol/L (136-145); TOT PROT 7.1 g/dl (6.4-8.2)
[2018-07-23] MEDS: MELATONIN 5 MG TABLETS PO PRN (22:19)
[2018-07-23] MEDS: THIAMINE HCL 100 MG TABLET (FP) PO SCH (23:28)
[2018-07-24] MEDS ORDERED: METHADONE HCL 5 MG TABLET (FOR DETOX USE ONLY) PO ONE (10:00)
[2018-07-24] MEDS: PRENATAL VITAMINS W/ FOLIC ACID TABLET (FP) PO SCH (10:18)
--- NOTE | 2018-07-24 10:48 | PN ---
S CIWA - CIWA Score Nausea/Vomitin Muscle Tremors: 2 Anxiety: 2 Agitation: 2 Paroxysmal Sweats: 1-Minimal Palms Moist Orientation: 0-Oriented Tacttile Disturbances: 1-Very Mild Itch/Numbness Auditory Disturbances: 1-Very Mild Visual Disturbances: 0-None Headache: 2-Mild CIWA-Ar Total Score: 13 [facility] Progress Note (SOAP) Subjective: alert,irritable,anxious,interrupted sleep,tremor,pain in the body and back Objective: 07/24/18 10:46 Vital Signs Temperature 98.8 F 07/24/18 09:56 Pulse Rate 108 H 07/24/18 09:56 Respiratory Rate 16 07/24/18 09:56 Blood Pressure 127/77 07/24/18 09:56 O2 Sat by Pulse Oximetry (%) Laboratory Last Values WBC 6.8 K/mm3 (4.0-10.0) 07/23/18 07:00 RBC 4.81 M/mm3 (4.00-5.60) 07/23/18 07:00 Hgb 14.0 GM/dL (11.7-16.9) 07/23/18 07:00 Hct 41.5 % (35.4-49) 07/23/18 07:00 MCV 86.3 fl (80-96) 07/23/18 07:00 MCH 29.1 pg (25.7-33.7) 07/23/18 07:00 MCHC 33.7 g/dl (32.0-35.9) 07/23/18 07:00 RDW 15.6 % (11.9-15.9) 07/23/18 07:00 Plt Count 291 K/MM3 (134-434) D 07/23/18 07:00 MPV 8.5 fl (7.5-11.1) D 07/23/18 07:00 Sodium 140 mmol/L (136-145) 07/23/18 07:00 Potassium 4.2 mmol/L (3.5-5.1) 07/23/18 07:00 Chloride 104 mmol/L (98-107) 07/23/18 07:00 Carbon Dioxide 31 mmol/L (21-32) 07/23/18 07:00 Anion Gap 5 MMOL/L (8-16) L 07/23/18 07:00 BUN 15 mg/dL (7-18) 07/23/18 07:00 Creatinine 0.9 mg/dL (0.55-1.3) 07/23/18 07:00 Creat Clearance w eGFR > 60 (>60) 07/23/18 07:00 Random Glucose 105 mg/dL (74-106) 07/23/18 07:00 Calcium 9.4 mg/dL (8.5-10.1) 07/23/18 07:00 Total Bilirubin 0.3 mg/dL (0.2-1) 07/23/18 07:00 AST 18 U/L (15-37) 07/23/18 07:00 ALT 34 U/L (13-61) 07/23/18 07:00 Alkaline Phosphatase 76 U/L (45-117) 07/23/18 07:00 Total Protein 7.1 g/dl (6.4-8.2) 07/23/18 07:00 Albumin 3.3 g/dl (3.4-5.0) L 07/23/18 07:00 RPR Titer Nonreactive (NONREACTIVE) 07/23/18 07:00 07/24/18 10:47 labs pending Assessment: 07/24/18 10:48 withdrawal symptom Plan: continue detox
[2018-07-24] MEDS: MELATONIN 5 MG TABLETS PO PRN (22:49)
[2018-07-24] MEDS: THIAMINE HCL 100 MG TABLET (FP) PO SCH (22:49)
[2018-07-25] MEDS ORDERED: METHADONE HCL 5 MG TABLET (FOR DETOX USE ONLY) PO ONE (10:00)
[2018-07-25] MEDS: PRENATAL VITAMINS W/ FOLIC ACID TABLET (FP) PO SCH (10:55)
--- NOTE | 2018-07-25 13:32 | PN ---
[facility] Progress Note (SOAP) Subjective: irritable sweats Objective: 07/25/18 13:32 Vital Signs Temperature 97.7 F 07/25/18 13:22 Pulse Rate 106 H 07/25/18 13:22 Respiratory Rate 18 07/25/18 13:22 Blood Pressure 127/71 07/25/18 13:22 O2 Sat by Pulse Oximetry (%) aaox3 ambulating no acute distress Assessment: 07/25/18 13:32 mild withdrawal sx Plan: continue detox increase fluids
[2018-07-25] MEDS: THIAMINE HCL 100 MG TABLET (FP) PO SCH (23:49)
[2018-07-25] MEDS: MELATONIN 5 MG TABLETS PO PRN (23:51)
[2018-07-26] MEDS ORDERED: METHADONE HCL 10 MG TABLET (FOR DETOX USE ONLY) PO ONE (10:00)
[2018-07-26] MEDS: PRENATAL VITAMINS W/ FOLIC ACID TABLET (FP) PO SCH (10:29)
--- NOTE | 2018-07-26 10:55 | PN ---
[facility] Progress Note Note: pt states he received his medication and states he is feeling fine and wants to go home. no s/s of withdrawals noted.
[2018-07-26 11:06] VITALS: BP 129/76; PULSE 102; TEMP 98.6
--- NOTE | 2018-07-26 11:08 | DS ---
[facility] Detox Discharge Summary Admission Date: 07/22/18 Discharge Date: 07/26/18 - History Present History: Cannabis Dependence, Cocaine Dependence, Opioid Dependence, Pcp Dependence - Physical Exam Results Vital Signs: Vital Signs Temperature 97.9 F 07/26/18 06:00 Pulse Rate 87 07/26/18 06:00 Respiratory Rate 16 07/26/18 06:00 Blood Pressure 97/54 L 07/26/18 06:00 O2 Sat by Pulse Oximetry (%) - Treatment Hospital Course: Detox Protocol Followed, Detoxed Safely, Responded well, Discharged Condition Good, Rehab Referral Accepted - Medication Discharge Medications: Ambulatory Orders Aripiprazole [Abilify] 10 mg PO DAILY 06/14/16 - Diagnosis (1) Opioid dependence with withdrawal Current Visit: Yes Status: Chronic (2) Substance induced mood disorder Current Visit: Yes Status: Acute (3) Substance-induced sleep disorder Current Visit: Yes Status: Acute (4) ADHD (attention deficit hyperactivity disorder) Current Visit: Yes Status: Chronic Qualifiers: Attention deficit-hyperactivity disorder type: unspecified Qualified Code(s ): F90.9 - Attention-deficit hyperactivity disorder, unspecified type (5) PTSD (post-traumatic stress disorder) Current Visit: Yes Status: Chronic (6) Schizoaffective disorder Current Visit: Yes Status: Chronic (7) Bipolar disorder Current Visit: Yes Status: Ruled-out (8) Cannabis dependence, uncomplicated Current Visit: Yes Status: Chronic (9) Cocaine dependence Current Visit: Yes Status: Chronic Qualifiers: Substance use status: uncomplicated Qualified Code(s): F14.20 - Cocaine dependence, uncomplicated (10) PCP dependence Current Visit: Yes Status: Chronic (11) Substance-induced sleep disorder Current Visit: No Status: Acute (12) Weight loss Current Visit: No Status: Acute (13) ADHD (attention deficit hyperactivity disorder) Current Visit: No Status: Chronic (14) Asthma Current Visit: Yes Status: Chronic Qualifiers: Asthma severity: unspecified severity Asthma persistence: unspecified (15) Nicotine dependence Current Visit: Yes Status: Chronic Qualifiers: Nicotine product type: cigarettes Substance use status: uncomplicated Qualified Code(s): F17.210 - Nicotine dependence, cigarettes, uncomplicated (16) Schizoaffective disorder Current Visit: No Status: Chronic (17) Tachycardia Current Visit: No Status: Chronic (18) Bipolar disorder Current Visit: No Status: Ruled-out - AMA Did Patient Leave Against Medical Advice: No (ref[facility] to [facility] )
[2018-07-27] MEDS ORDERED: METHADONE HCL 5 MG TABLET (FOR DETOX USE ONLY) PO ONE (06:00)
== END 2018-07-26 11:53 | disposition home or self-care (01) | DRG 773 ==
LOC: YASAS 16:15 → Y6N 19:34
PROVIDERS: ADMIT Surgery; ATTEND Surgery
PROC: HZ2ZZZZ Detoxification Services for Substance Abuse Treatment (ICD-10-PCS; principal; 2018-07-22)
DX: F11.23 Opioid dependence with withdrawal (principal); F14.20 Cocaine dependence, uncomplicated; F16.20 Hallucinogen dependence, uncomplicated; F12.20 Cannabis dependence, uncomplicated; F17.210 Nicotine dependence, cigarettes, uncomplicated; F19.282 Other psychoactive substance dependence with psychoactive substance-induced sleep disorder; F19.24 Other psychoactive substance dependence with psychoactive substance-induced mood disorder; F90.9 Attention-deficit hyperactivity disorder, unspecified type; F25.9 Schizoaffective disorder, unspecified; F31.9 Bipolar disorder, unspecified; J45.909 Unspecified asthma, uncomplicated; R00.0 Tachycardia, unspecified; R63.4 Abnormal weight loss; Z68.22 Body mass index [BMI] 22.0-22.9, adult
CPT/HCPCS: 11042; 36415; 80053; 85027; 86593; 87389

== ENCOUNTER 2020-08-28 23:10 | Emergency (ER) | payer SELFPAY ==
[2020-08-28 23:15] VITALS: BP 115/88; PULSE 96; TEMP 98.1; BMI 23.5
== END 2020-08-29 01:10 | disposition left against medical advice (07) ==
LOC: JER 23:10
DX: F11.10 Opioid abuse, uncomplicated (principal)
CPT/HCPCS: 99283-25

== ENCOUNTER 2020-09-12 11:36 | Inpatient (IN) | payer OTHER ==
[2020-09-12] MEDS ORDERED: ONDANSETRON *ODT* 4 MG TABLET SL PRN (13:20)
[2020-09-12] MEDS ORDERED: MAG HYDROX/AL HYDROX/SIMETH 30 ML UNIT-DOSE CUP PO PRN (13:20)
[2020-09-12] MEDS ORDERED: MENTHOL/PHENOL 1 EACH UD MM PRN (13:20)
[2020-09-12] MEDS ORDERED: ACETAMINOPHEN 325 MG TABLET (FP) PO PRN ×2 (13:20)
[2020-09-12] MEDS ORDERED: cloNIDine HCL 0.1 MG TABLET PO PRN (13:20)
[2020-09-12] MEDS ORDERED: MAGNESIUM CITRATE 300 ML BOTTLE PO PRN (13:20)
[2020-09-12] MEDS ORDERED: NALOXONE (NARCAN) HCL 4 MG/0.1 ML SPRAY NS PRN (13:20)
[2020-09-12] MEDS ORDERED: METHOCARBAMOL 500 MG TABLET PO PRN (13:20)
[2020-09-12] MEDS ORDERED: NICOTINE POLACRILEX 2 MG GUM BUC PRN (13:20)
[2020-09-12] MEDS ORDERED: IBUPROFEN 400 MG TABLET (FP) PO PRN (13:20)
[2020-09-12] MEDS ORDERED: BISMUTH SUBSALICYLATE 524 MG/30 ML UD PO PRN (13:20)
[2020-09-12] MEDS ORDERED: MAGNESIUM HYDROX 2400MG/30ML ORAL SUSPENSION 30 ML CUP PO PRN (13:20)
[2020-09-12 13:21] VITALS: BMI 23.8
[2020-09-12] MEDS ORDERED: METHADONE HCL 10 MG TABLET (FOR DETOX USE ONLY) PO ONE (13:45)
[2020-09-12] MEDS: NICOTINE 21 MG/24 HOURS TOPICAL PATCH TD SCH (14:18)
[2020-09-12] MEDS: PRENATAL VITAMINS W/ FOLIC ACID TABLET (FP) PO SCH (14:18)
[2020-09-12] MEDS: hydrOXYzine PAMOATE 25 MG CAPSULE (FP) PO SCH ×3 (14:20→23:37)
[2020-09-12 17:15] LABS: HEMATOCRIT 39.3 % (35.4-49); HEMOGLOBIN 12.7 GM/dL (11.7-16.9); MCH 28.8 pg (25.7-33.7); MCHC 32.3 g/dl (32.0-35.9); MEAN CELL VOLUME 89.1 fl (80-96); MEAN PLT VOLUME 9.1 fl (7.5-11.1); PLATELET COUNT 295 K/MM3 (134-434); RBC 4.41 M/mm3 (4.00-5.60); RDW 14.1 % (11.9-15.9); WHITE BLOOD COUNT 5.5 K/mm3 (4.0-10.0)
[2020-09-12 17:19] LABS: ALBUMIN 3.4 g/dl (3.4-5.0); CALCIUM 9.1 mg/dL (8.5-10.1)
[2020-09-12 17:20] LABS: BLOOD UREA NITROGEN 14.5 mg/dL (7-18)
[2020-09-12 17:23] LABS: BILIRUBIN,TOTAL 0.3 mg/dL (0.2-1); CREATININE 0.9 mg/dL (0.55-1.3); TOT PROT 7.2 g/dl (6.4-8.2)
[2020-09-12] MEDS: MELATONIN 5 MG TABLETS PO SCH (23:37)
[2020-09-12] MEDS: THIAMINE HCL 100 MG TABLET (FP) PO SCH (23:37)
[2020-09-13] MEDS: hydrOXYzine PAMOATE 25 MG CAPSULE (FP) PO SCH ×5 (05:46→22:44)
[2020-09-13] MEDS ORDERED: METHADONE HCL 10 MG TABLET (FOR DETOX USE ONLY) ONE (08:28)
[2020-09-13] MEDS ORDERED: METHADONE HCL 5 MG TABLET (FOR DETOX USE ONLY) ONE (08:28)
[2020-09-13] MEDS: PRENATAL VITAMINS W/ FOLIC ACID TABLET (FP) PO SCH (09:52)
[2020-09-13] MEDS: NICOTINE 21 MG/24 HOURS TOPICAL PATCH TD SCH (09:52)
[2020-09-13] MEDS ORDERED: METHADONE (DETOX) 20 MG, METHADONE (DETOX) 5 MG PO ONE (10:00)
[2020-09-13] MEDS: MELATONIN 5 MG TABLETS PO SCH (22:44)
[2020-09-13] MEDS: THIAMINE HCL 100 MG TABLET (FP) PO SCH (22:44)
[2020-09-14] MEDS: hydrOXYzine PAMOATE 25 MG CAPSULE (FP) PO SCH (05:40)
[2020-09-14 09:52] VITALS: BP 118/70; PULSE 108; TEMP 98.7
[2020-09-14] MEDS ORDERED: METHADONE HCL 10 MG TABLET (FOR DETOX USE ONLY) PO ONE (10:00)
[2020-09-15] MEDS ORDERED: METHADONE (DETOX) 10 MG, METHADONE (DETOX) 5 MG PO ONE (10:00)
[2020-09-16] MEDS ORDERED: METHADONE HCL 10 MG TABLET (FOR DETOX USE ONLY) PO ONE (10:00)
[2020-09-17] MEDS ORDERED: METHADONE HCL 5 MG TABLET (FOR DETOX USE ONLY) PO ONE (06:00)
== END 2020-09-14 10:22 | disposition left against medical advice (07) | DRG 770 ==
LOC: YASAS 11:36 → Y6N 13:06
PROVIDERS: ADMIT Allergy & Immunology; ATTEND Allergy & Immunology
PROC: HZ2ZZZZ Detoxification Services for Substance Abuse Treatment (ICD-10-PCS; principal; 2020-09-12)
DX: F11.23 Opioid dependence with withdrawal (principal); F14.20 Cocaine dependence, uncomplicated; F19.24 Other psychoactive substance dependence with psychoactive substance-induced mood disorder; F32.9 Major depressive disorder, single episode, unspecified; J45.909 Unspecified asthma, uncomplicated; R63.4 Abnormal weight loss; Z68.23 Body mass index [BMI] 23.0-23.9, adult; Z87.891 Personal history of nicotine dependence; Z56.0 Unemployment, unspecified; Z59.0 Homelessness
CPT/HCPCS: 36415; 80053; 85027; 86780; 93005; 93010; C9803; Q0162; U0003; U0005

== ENCOUNTER 2022-09-25 02:21 | Emergency (ER) | payer OTHER ==
[2022-09-25 02:26] VITALS: BP 133/98; PULSE 92; RESP 18; TEMP 97.6; BMI 23.5
== END 2022-09-25 04:43 | disposition home or self-care (01) ==
LOC: JER 02:21
DX: R11.0 Nausea (principal); R68.83 Chills (without fever); F11.23 Opioid dependence with withdrawal
CPT/HCPCS: 99283-25; 99285-25

== ENCOUNTER 2023-02-05 07:17 | Inpatient (IN) | payer OTHER ==
[2023-02-05 07:46] VITALS: BMI 21.4
[2023-02-05] MEDS ORDERED: BENZONATATE 200 MG CAPSULE PO PRN (09:25)
[2023-02-05] MEDS ORDERED: LOPERAMIDE HCL 2 MG CAPSULE PO PRN (09:25)
[2023-02-05] MEDS ORDERED: MAG HYDROX/AL HYDROX/SIMETH 30 ML UNIT-DOSE CUP PO PRN (09:25)
[2023-02-05] MEDS ORDERED: ACETAMINOPHEN 325 MG TABLET (FP) PO PRN (09:25)
[2023-02-05] MEDS ORDERED: BENZOCAINE/MENTHOL (CHLORASEPTIC ) LOZENGE MM PRN (09:25)
[2023-02-05] MEDS ORDERED: NALOXONE HCL (KLOXXADO) 8 MG SPRAY NS PRN (09:25)
[2023-02-05] MEDS ORDERED: IBUPROFEN 600 MG TABLET (FP) PO PRN (09:25)
[2023-02-05] MEDS ORDERED: guaiFENesin 600 MG TABLET.ER (FP) PO PRN (09:25)
[2023-02-05] MEDS ORDERED: NALOXONE HCL 0.4 MG/ML VIAL IM PRN (09:25)
[2023-02-05] MEDS ORDERED: BISMUTH SUBSALICYLATE 262 MG/15 ML BTL PO PRN (09:25)
[2023-02-05] MEDS ORDERED: MAGNESIUM HYDROX 2400MG/30ML ORAL SUSPENSION 30 ML CUP PO PRN (09:25)
[2023-02-05] MEDS ORDERED: POLYETHYLENE GLYCOL (HEALTHYLAX) 3350 17 GM PACKET PO PRN (09:25)
[2023-02-05] MEDS ORDERED: IBUPROFEN 400 MG TABLET (FP) PO PRN (09:25)
[2023-02-05] MEDS ORDERED: ONDANSETRON *ODT* 4 MG TABLET SL PRN (09:25)
[2023-02-05] MEDS ORDERED: DICYCLOMINE HCL 10 MG CAPSULE PO PRN (09:25)
[2023-02-05] MEDS ORDERED: methaDONE HCL 10 MG TABLET (FOR DETOX USE ONLY) PO ONE (09:48)
[2023-02-05] MEDS ORDERED: PRENATAL VITAMINS W/ FOLIC ACID TABLET (FP) PO ONE (09:58)
[2023-02-05] MEDS ORDERED: methaDONE HCL 10 MG TABLET (FOR DETOX USE ONLY) ONE (09:58)
[2023-02-05] MEDS ORDERED: NICOTINE 14 MG/24 HOURS TOPICAL PATCH TD ONE (09:58)
[2023-02-05] MEDS ORDERED: PRENATAL VITAMINS W/ FOLIC ACID TABLET (FP) PO SCH (10:00)
[2023-02-05] MEDS ORDERED: NICOTINE 14 MG/24 HOURS TOPICAL PATCH TD SCH (10:00)
[2023-02-05 11:32] LABS: HEMOGLOBIN 14.5 GM/dL (11.7-16.9); MCH 27.8 pg (25.7-33.7); MCHC 33.7 g/dl (32.0-35.9); MEAN CELL VOLUME 82.4 fl (80-96); MEAN PLT VOLUME 8.1 fl (7.5-11.1); PLATELET COUNT 384 10^3/uL (134-434); RBC 5.21 M/mm3 (4.00-5.60); RDW 14.5 % (11.9-15.9); WHITE BLOOD COUNT 8.9 K/mm3 (4.0-10.0)
[2023-02-05 11:40] LABS: POTASSIUM 3.7 mmol/L (3.5-5.1)
[2023-02-05 11:43] LABS: CALCIUM 9.5 mg/dL (8.5-10.1)
[2023-02-05 11:44] LABS: ALBUMIN 3.8 g/dl (3.4-5.0)
[2023-02-05 11:47] LABS: CREATININE 0.9 mg/dL (0.55-1.3)
[2023-02-05 11:49] LABS: BILIRUBIN,TOTAL 1.2 mg/dL (0.2-1); TOT PROT 8.2 g/dl (6.4-8.2)
[2023-02-05] MEDS: hydrOXYzine PAMOATE 25 MG CAPSULE (FP) PO PRN (12:10)
[2023-02-05] MEDS: METHOCARBAMOL 500 MG TABLET PO PRN (12:10)
[2023-02-05 12:18] LABS: SYPHILIS W/ RPR CONF NON-REACTIVE (NONREACTIVE)
[2023-02-05] MEDS: MELATONIN 5 MG TABLETS PO SCH (21:39)
[2023-02-05] MEDS ORDERED: THIAMINE HCL 100 MG TABLET (FP) PO SCH (22:00)
[2023-02-06] MEDS: MELATONIN 5 MG TABLETS PO SCH
[2023-02-06] MEDS: METHOCARBAMOL 500 MG TABLET PO PRN
[2023-02-06] MEDS: hydrOXYzine PAMOATE 25 MG CAPSULE (FP) PO PRN
[2023-02-06 05:56] VITALS: BP 125/85; PULSE 75; RESP 20; TEMP 98.7
== END 2023-02-06 07:41 | disposition home or self-care (01) | DRG 773 ==
LOC: YASAS 07:17 → Y3N 10:02
PROVIDERS: ADMIT Allergy & Immunology; ATTEND Surgery
PROC: HZ2ZZZZ Detoxification Services for Substance Abuse Treatment (ICD-10-PCS; principal; 2023-02-05)
DX: F11.20 Opioid dependence, uncomplicated (principal); F14.20 Cocaine dependence, uncomplicated; F17.210 Nicotine dependence, cigarettes, uncomplicated; F25.9 Schizoaffective disorder, unspecified; F43.10 Post-traumatic stress disorder, unspecified; F32.A Depression, unspecified; F90.9 Attention-deficit hyperactivity disorder, unspecified type; J45.909 Unspecified asthma, uncomplicated; Z28.310 Unvaccinated for COVID-19; Z28.9 Immunization not carried out for unspecified reason
CPT/HCPCS: 36415; 80053; 83036; 85027; 86780; 86803; 87635; 87811

== ENCOUNTER 2023-05-03 09:33 | Emergency (ER) | payer OTHER ==
[2023-05-03 09:38] VITALS: BP 138/95; PULSE 66; RESP 18; TEMP 97.9; BMI 30.4
[2023-05-03] MEDS ORDERED: ONDANSETRON *ODT* 4 MG TABLET SL ONE (10:57)
[2023-05-03] MEDS ORDERED: FAMOTIDINE 20 MG TABLET PO ONE (10:58)
[2023-05-03] MEDS ORDERED: MAG HYDROX/AL HYDROX/SIMETH 30 ML UNIT-DOSE CUP PO ONE (10:58)
== END 2023-05-03 12:46 | disposition home or self-care (01) ==
LOC: JER 09:33
DX: R10.9 Unspecified abdominal pain (principal); R11.2 Nausea with vomiting, unspecified; K52.9 Noninfective gastroenteritis and colitis, unspecified
CPT/HCPCS: 99283-25; Q0162

== ENCOUNTER 2023-06-17 02:57 | Emergency (ER) | payer OTHER ==
[2023-06-17 03:04] VITALS: PULSE 77; BMI 21.2
[2023-06-17] MEDS ORDERED: ONDANSETRON 4 MG/2 ML VIAL IVPUSH ONE (04:50)
[2023-06-17] MEDS ORDERED: SODIUM CHLORIDE 1,000 ML IV STA (04:50)
[2023-06-17] MEDS ORDERED: ONDANSETRON *ODT* 4 MG TABLET SL ONE (05:00)
[2023-06-17] MEDS ORDERED: ONDANSETRON *ODT* 4 MG TABLET ONE (05:15)
[2023-06-17 06:42] VITALS: BP 126/70; RESP 19; TEMP 98.8
== END 2023-06-17 06:51 | disposition home or self-care (01) ==
LOC: JER 02:57
DX: R11.2 Nausea with vomiting, unspecified (principal); R19.7 Diarrhea, unspecified; F19.90 Other psychoactive substance use, unspecified, uncomplicated
CPT/HCPCS: 99283-25; Q0162

== ENCOUNTER 2024-03-23 01:05 | Emergency (ER) | payer OTHER ==
[2024-03-23 01:37] VITALS: BP 117/81; PULSE 104; RESP 18; TEMP 97.7; BMI 29.2
[2024-03-23] MEDS ORDERED: HALOPERIDOL LACTATE 5 MG/ML ONE (01:51)
[2024-03-23] MEDS ORDERED: MIDAZOLAM HCL 5 MG/1 ML Single Dose Vial ONE (02:13)
[2024-03-23] MEDS: HALOPERIDOL DECANOATE 100 MG/ML IM ONE (02:13)
[2024-03-23] MEDS: MIDAZOLAM HCL 5 MG/1 ML Single Dose Vial IM ONE (02:18)
[2024-03-23 08:59] LABS: BASO % 0.5 % (0-2.0); HEMATOCRIT 41.1 % (35.4-49); HEMOGLOBIN 13.4 GM/dL (11.7-16.9); LYMPH % 28.9 % (8-40); MCH 27.6 pg (25.7-33.7); MCHC 32.5 g/dl (32.0-35.9); MEAN CELL VOLUME 84.9 fl (80-96); MEAN PLT VOLUME 8.4 fl (7.5-11.1); MONO % 6.8 % (3.8-10.2); NEUT % 60.8 % (42.8-82.8); PLATELET COUNT 215 10^3/uL (134-434); RBC 4.85 M/mm3 (4.00-5.60); RDW 14.3 % (11.9-15.9); WHITE BLOOD COUNT 7.6 K/mm3 (4.0-10.0)
[2024-03-23 09:25] LABS: CHLORIDE 104 mmol/L (98-107); POTASSIUM 4.1 mmol/L (3.5-5.1); SODIUM 140 mmol/L (136-145)
[2024-03-23 09:27] LABS: ANION GAP 4 mmol/L (4-13); BLOOD UREA NITROGEN 11.1 mg/dL (7-18); CALCIUM 8.8 mg/dL (8.5-10.1); CO2 32 mmol/L (21-32)
[2024-03-23 09:28] LABS: ALBUMIN 3.4 g/dl (3.4-5.0); GLUCOSE,RANDOM 75 mg/dL (74-106)
[2024-03-23 09:31] LABS: CREATININE 0.8 mg/dL (0.55-1.3); SGOT/AST 27 U/L (15-37); SGPT/ALT 38 U/L (13-61)
[2024-03-23 09:32] LABS: BILIRUBIN,TOTAL 0.9 mg/dL (0.2-1); TOT PROT 6.7 g/dl (6.4-8.2)
[2024-03-23 09:33] LABS: ALK PHOS 81 U/L (45-117)
[2024-03-23] MEDS ORDERED: methaDONE HCL 40 MG DISPERSABLE TABLET ONE (10:00)
[2024-03-23] MEDS ORDERED: methaDONE HCL 10 MG TABLET ONE ×2 (10:00→10:01)
[2024-03-23] MEDS: methaDONE HCL 40 MG DISPERSABLE TABLET PO ONE (10:09)
== END 2024-03-23 14:34 | disposition home or self-care (01) ==
LOC: JER 01:05
PROC: 3E023GC Introduction of Other Therapeutic Substance into Muscle, Percutaneous Approach (ICD-10-PCS; principal; 2024-03-23)
DX: R45.851 Suicidal ideations (principal); F11.23 Opioid dependence with withdrawal
CPT/HCPCS: 36415; 80053; 80307; 85025; 99284-25